=== PATIENT | male | born 2000 | race Caucasian/White ===

== ENCOUNTER 2021-10-06 12:50 | Emergency (ER) | payer OTHER ==
[2021-10-06] MEDS ORDERED: VIBRAMYCIN100 MG PO (15:02)
[2021-10-07 05:08] LABS: RPR Non Reactive (Non Reactive)
[2021-10-09 21:11] LABS: CHLAMYDIA TRACHOMATIS, NAA Negative (Negative); NEISSERIA GONORRHOEAE, NAA Negative (Negative)
== END 2021-10-06 15:10 | disposition home or self-care (01) ==
LOC: ER1 12:50
PROVIDERS: Student in an Organized Health Care Education/Training Program
DX: R36.9 Urethral discharge, unspecified (principal); Z88.0 Allergy status to penicillin
CPT/HCPCS: 81001; 86592; 96372; 99283; J1580